=== PATIENT | male | born 1960 | race Caucasian/White ===

== ENCOUNTER 2021-06-02 08:28 | Day surgery (SDC) | payer OTHER | END 2021-06-02 11:02 | disposition home or self-care (01) | LOC: CSHSDC/OP 08:28 | PROVIDERS: ATTEND Nurse Practitioner Family | DX: Z23 Encounter for immunization (principal); U07.1 COVID-19 | CPT/HCPCS: 36416; 96365; J3490; M0243; Q0244 ==

== ENCOUNTER 2024-04-12 07:56 | Outpatient (CLI) | payer MEDICARE, OTHER | END 2024-04-12 07:57 | disposition home or self-care (01) | LOC: CSHCT 07:56 | PROVIDERS: ATTEND Family Medicine | DX: N23 Unspecified renal colic (principal); N28.1 Cyst of kidney, acquired; N28.9 Disorder of kidney and ureter, unspecified; K76.89 Other specified diseases of liver; K57.30 Diverticulosis of large intestine without perforation or abscess without bleeding | CPT/HCPCS: 74178; 74410 ==

== ENCOUNTER 2025-05-03 09:47 | Outpatient (CLI) | payer MEDICARE, OTHER | END 2025-05-03 09:48 | disposition home or self-care (01) | LOC: CSHULT 09:47 | PROVIDERS: ATTEND Family Medicine | DX: N28.1 Cyst of kidney, acquired (principal) | CPT/HCPCS: 76770 ==

== ENCOUNTER 2025-05-10 12:38 | Outpatient (CLI) | payer MEDICARE, OTHER ==
[2025-05-10 16:09] LABS: Estimated GFR - POC 61.0
== END 2025-05-10 12:39 | disposition home or self-care (01) ==
LOC: CSHCT 12:38
PROVIDERS: ATTEND Family Medicine
DX: N28.89 Other specified disorders of kidney and ureter (principal); K86.9 Disease of pancreas, unspecified; N28.1 Cyst of kidney, acquired
CPT/HCPCS: 36415; 74170; 82565